=== PATIENT | female | born 1990 | race Caucasian/White ===

== ENCOUNTER 2021-03-27 11:37 | Emergency (ER) | payer OTHER ==
[2021-03-27 12:16] LABS: BASOPHIL 0.1 % (0-2); EOSINOPHIL 3.9 % (0-5); HGB 14.2 g/dl (12.5-16.0); LYMPHOCYTE 31.2 % (15-48); MCV 90.9 fL (78.0-100.0); MONOCYTE 9.5 % (0-12); MPV 12.3 fL (6.0-9.5); NEUTROPHIL 55.2 % (41-80); NRBC 0; PLT 133 K/uL (150-400); RBC 4.73 M/uL (4.20-5.40); RDW 12.7 % (11.5-14.0); WBC 8.9 K/uL (4.0-10.5)
[2021-03-27 12:24] LABS: BUN/CREAT RATIO (CALC) 25.8 RATIO; CREATININE 0.62 mg/dL (0.51-0.95); POTASSIUM 3.7 mmol/L (3.5-5.1)
== END 2021-03-27 13:35 | disposition home or self-care (01) ==
LOC: FER 11:37
PROVIDERS: Internal Medicine
DX: R00.2 Palpitations (principal); R03.0 Elevated blood-pressure reading, without diagnosis of hypertension; Z88.6 Allergy status to analgesic agent; Z88.8 Allergy status to other drugs, medicaments and biological substances; Z88.2 Allergy status to sulfonamides
CPT/HCPCS: 36415; 71045; 80048; 84443; 84484; 85025; 93005

== ENCOUNTER 2022-03-15 07:37 | Emergency (ER) | payer OTHER ==
[2022-03-15 08:14] LABS: ALBUMIN 2.7 g/dL (3.4-5.0); BILIRUBIN - TOTAL 0.2 mg/dL (0.2-1.0); CREATININE 0.5 mg/dL (0.51-0.95); GLOBULIN (CALCULATION) 3.8 g/dL; POTASSIUM 3.8 mmol/L (3.5-5.1); TOTAL PROTEIN 6.5 g/dL (6.4-8.2)
[2022-03-15 08:18] LABS: BASOPHIL 0.2 % (0-2); EOSINOPHIL 0.2 % (0-5); HCT 37.4 % (37.0-47.0); HGB 12.8 g/dl (12.5-16.0); LYMPHOCYTE 10.3 % (15-48); MCH 31.2 pg (25.0-31.0); MCHC 34.2 g/dL (32.0-36.0); MCV 91.2 fL (78.0-100.0); MONOCYTE 5.7 % (0-12); NEUTROPHIL 83.2 % (41-80); NRBC 0; PLT 120 K/uL (150-400); RDW 13.3 % (11.5-14.0); WBC 17.6 K/uL (4.0-10.5)
== END 2022-03-15 10:39 | disposition left against medical advice (07) ==
LOC: FER 07:37
PROVIDERS: Internal Medicine
DX: O99.12 Other diseases of the blood and blood-forming organs and certain disorders involving the immune mechanism complicating childbirth (principal); D72.829 Elevated white blood cell count, unspecified; Z28.310 Unvaccinated for COVID-19; Z53.29 Procedure and treatment not carried out because of patient's decision for other reasons; Z88.2 Allergy status to sulfonamides; Z88.8 Allergy status to other drugs, medicaments and biological substances
CPT/HCPCS: 36415; 36430; 80053; 85025; 86850; 86900; 86901; J2790